=== PATIENT | female | born 1980 | race Caucasian/White ===

== ENCOUNTER 2018-07-22 15:21 | Inpatient (IN) | payer OTHER ==
[2018-07-22 23:08] VITALS: BMI 19.5
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
[2018-07-23] MEDS ORDERED: hydrOXYzine PAMOATE 25 MG CAPSULE (FP) PO PRN (00:20)
[2018-07-23] MEDS ORDERED: MAGNESIUM HYDROX 2400MG/30ML ORAL SUSPENSION 30 ML CUP PO PRN (00:20)
[2018-07-23] MEDS ORDERED: METHOCARBAMOL 500 MG TABLET PO PRN (00:20)
[2018-07-23] MEDS ORDERED: cloNIDine HCL 0.1 MG TABLET PO PRN (00:20)
[2018-07-23] MEDS ORDERED: P-EPHED 60MG/TRIPROLIDI 2.5MG TABLET PO PRN (00:20)
[2018-07-23] MEDS ORDERED: NALOXONE HCL 0.4 MG/ML VIAL IVPUSH PRN (00:20)
[2018-07-23] MEDS ORDERED: IBUPROFEN 400 MG TABLET (FP) PO PRN ×2 (00:20)
[2018-07-23] MEDS ORDERED: DICYCLOMINE HCL 10 MG CAPSULE PO PRN (00:20)
[2018-07-23] MEDS ORDERED: guaiFENesin 200 MG/10 ML 10 ML UNIT-DOSE CUPS PO PRN (00:20)
[2018-07-23] MEDS ORDERED: MAG HYDROX/AL HYDROX/SIMETH 30 ML UNIT-DOSE CUP PO PRN (00:20)
[2018-07-23] MEDS ORDERED: METHADONE HCL 10 MG TABLET (FOR DETOX USE ONLY) PO ONE ×2 (00:20→10:00)
[2018-07-23] MEDS ORDERED: MAGNESIUM CITRATE 300 ML BOTTLE PO PRN (00:20)
[2018-07-23] MEDS ORDERED: MENTHOL/PHENOL 1 EACH UD MM PRN (00:20)
[2018-07-23] MEDS ORDERED: BISMUTH SUBSALICYLATE 524 MG/30 ML UD PO PRN (00:20)
[2018-07-23] MEDS ORDERED: ONDANSETRON *ODT* 4 MG TABLET SL PRN (00:20)
[2018-07-23] MEDS ORDERED: ACETAMINOPHEN 325 MG TABLET (FP) PO PRN ×2 (00:20)
[2018-07-23] MEDS: diazePAM 5 MG TABLET PO PRN (03:31)
[2018-07-23] MEDS: diazePAM 5 MG TABLET PO SCH ×3 (06:34→22:52)
[2018-07-23] MEDS: metroNIDAZOLE 250 MG TABLET PO SCH ×2 (10:32→22:51)
[2018-07-23] MEDS: CLINDAMYCIN PHOSPHATE 1% TOPICAL SOLUTION 30 ML BOTTLE TP SCH ×2 (10:32→22:53)
[2018-07-23] MEDS: PRENATAL VITAMINS W/ FOLIC ACID TABLET (FP) PO SCH (10:32)
[2018-07-23] MEDS: NICOTINE 14 MG/24 HOURS TOPICAL PATCH TD SCH (10:56)
--- NOTE | 2018-07-23 11:38 | PN ---
S CIWA - CIWA Score Nausea/Vomitin-No Nausea/No Vomiting Muscle Tremors: 3 Anxiety: 3 Agitation: 2 Paroxysmal Sweats: No Perspiration Orientation: 0-Oriented Tacttile Disturbances: 2-Mild Itch/Numbness/Burn Auditory Disturbances: 0-None Visual Disturbances: 0-None Headache: 2-Mild CIWA-Ar Total Score: 12 [facility] COWS - Scale Resting Pulse: 2= TN 101-120 Sweatin= No chills or Flushing Restless Observation: 3= Extraneous Movement Pupil Size: 0= Normal to Room Light Bone or Joint Aches: 2= Severe Diffuse Aches Runny Nose/ Eye Tearin= None GI Upset > 30mins: 0= None Tremor Observation of Outstretched Hands: 2= Slight Tremor Visible Yawning Observation: 1= 1-2x During Session Anxiety or Irritability: 2=Irritable/Anxious Goose Flesh Skin: 0=Smooth Skin COWS Score: 12 [facility] Progress Note (SOAP) Subjective: c/o Dry skin, anxiety, body aches, tremor, headache, and irritability. Objective: 07/23/18 11:34 Vital Signs 07/23/18 07/23/18 06:00 09:40 Temperature 96.8 F L 98.0 F Pulse Rate 77 112 H Respiratory 20 18 Rate Blood Pressure 110/55 L 135/76 Labs pending. Assessment: 07/23/18 11:35 AOX3, in no acute distress full rom, ambulating in the unit. withdrawal symptoms Plan: continue detox increase fluids Eucerin lotion for dry skin
[2018-07-23] MEDS: MINERAL OIL/PETROLAT/WATER TOPICAL CREAM 113 GM JAR TP SCH ×2 (14:40→22:52)
[2018-07-23] MEDS: NICOTINE POLACRILEX 2 MG GUM BUC PRN (18:43)
[2018-07-23] MEDS: MELATONIN 5 MG TABLETS PO PRN (22:51)
[2018-07-23] MEDS: THIAMINE HCL 100 MG TABLET (FP) PO SCH (22:51)
[2018-07-24] MEDS: diazePAM 5 MG TABLET PO SCH ×2 (05:37→17:50)
[2018-07-24] MEDS ORDERED: METHADONE HCL 10 MG TABLET (FOR DETOX USE ONLY) PO ONE (10:00)
[2018-07-24 10:34] LABS: ALBUMIN 3.2 g/dl (3.4-5.0); BILIRUBIN,TOTAL 0.3 mg/dL (0.2-1); CALCIUM 8.4 mg/dL (8.5-10.1); CREATININE 0.5 mg/dL (0.55-1.3); POTASSIUM 3.9 mmol/L (3.5-5.1)
[2018-07-24] MEDS: MINERAL OIL/PETROLAT/WATER TOPICAL CREAM 113 GM JAR TP SCH ×2 (10:34→22:48)
[2018-07-24] MEDS: metroNIDAZOLE 250 MG TABLET PO SCH ×2 (10:34→22:44)
[2018-07-24] MEDS: CLINDAMYCIN PHOSPHATE 1% TOPICAL SOLUTION 30 ML BOTTLE TP SCH ×2 (10:34→22:48)
[2018-07-24] MEDS: PRENATAL VITAMINS W/ FOLIC ACID TABLET (FP) PO SCH (10:34)
[2018-07-24] MEDS: NICOTINE 14 MG/24 HOURS TOPICAL PATCH TD SCH (10:35)
[2018-07-24 10:44] LABS: HEMATOCRIT 31.8 % (32.4-45.2); HEMOGLOBIN 10.6 GM/dL (10.7-15.3); MCH 30.7 pg (25.7-33.7); MCHC 33.4 g/dl (32.0-36.0); MEAN CELL VOLUME 92.1 fl (80-96); MEAN PLT VOLUME 9.7 fl (7.5-11.1); PLATELET COUNT 140 K/MM3 (134-434); RBC 3.46 M/mm3 (3.60-5.2); RDW 14.6 % (11.6-15.6)
[2018-07-24 10:48] LABS: WHITE BLOOD COUNT 1.9 K/mm3 (4.0-10.0)
--- NOTE | 2018-07-24 18:04 | PN ---
[facility] CIWA - CIWA Score Nausea/Vomitin-Mild Nausea/No Vomiting Muscle Tremors: 4-Moderate,w/Arms Extend Anxiety: 3 Agitation: 3 Paroxysmal Sweats: 3 Orientation: 0-Oriented Tacttile Disturbances: 0-None Auditory Disturbances: 0-None Visual Disturbances: 0-None Headache: 0-None Present CIWA-Ar Total Score: 14 S COWS - Scale Resting Pulse: 0= MT 80 or Below Sweatin= Chills/Flushing Restless Observation: 3= Extraneous Movement Pupil Size: 0= Normal to Room Light Bone or Joint Aches: 2= Severe Diffuse Aches Runny Nose/ Eye Tearin= Runny Nose/Eyes GI Upset > 30mins: 2= Nausea/Diarrhea Tremor Observation of Outstretched Hands: 2= Slight Tremor Visible Yawning Observation: 0= None Anxiety or Irritability: 2=Irritable/Anxious Goose Flesh Skin: 0=Smooth Skin COWS Score: 14 [facility] Progress Note (SOAP) Subjective: Lots of Sweating, chills Objective: 07/24/18 18:01 Last Vital Signs Temp Pulse Resp BP Pulse Ox 98.8 F 61 16 103/67 07/24/18 14:29 07/24/18 14:29 07/24/18 14:29 07/24/18 14:29 Laboratory Tests 07/24/18 07/24/18 07/24/18 07:50 07:50 07:50 WBC 1.9 L* RBC 3.46 L Hgb 10.6 L Hct 31.8 L MCV 92.1 MCH 30.7 MCHC 33.4 RDW 14.6 Plt Count 140 D MPV 9.7 Sodium 136 Potassium 3.9 Chloride 100 Carbon Dioxide 32 Anion Gap 3 L BUN 15 Creatinine 0.5 L Est GFR (CKD-EPI)AfAm 143.30 Est GFR (CKD-EPI)NonAf 123.64 Random Glucose 76 Calcium 8.4 L Total Bilirubin 0.3 AST 18 ALT 21 Alkaline Phosphatase 56 Total Protein 7.0 Albumin 3.2 L RPR Titer Nonreactive Labs reviewed: pancytopenia noted Assessment: 07/24/18 18:02 Withdrawal symptoms Pancytopenia noted Plan: Continue detox Encouraged PO water intake Pancytopenia: most likely r/t HIV, repeat CBC in AM, Send CD4 count in AM, encouraged hand washing with soap and water before eating and after using bathroom due to neutropenia
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
[2018-07-24] MEDS: diazePAM 5 MG TABLET PO PRN (22:46)
[2018-07-24] MEDS: THIAMINE HCL 100 MG TABLET (FP) PO SCH (22:46)
[2018-07-25] MEDS ORDERED: diazePAM 5 MG TABLET PO ONE (06:00)
[2018-07-25] MEDS ORDERED: METHADONE HCL 10 MG TABLET (FOR DETOX USE ONLY) PO ONE (10:00)
[2018-07-25 10:10] LABS: BASO % 0.7 % (0-2.0); EOS % 3.9 % (0-4.5); HEMATOCRIT 31.6 % (32.4-45.2); HEMOGLOBIN 10.6 GM/dL (10.7-15.3); LYMPH % 19.9 % (8-40); MCH 30.6 pg (25.7-33.7); MCHC 33.4 g/dl (32.0-36.0); MEAN CELL VOLUME 91.6 fl (80-96); MEAN PLT VOLUME 9.7 fl (7.5-11.1); NEUT % 59.5 % (42.8-82.8); PLATELET COUNT 135 K/MM3 (134-434); RBC 3.44 M/mm3 (3.60-5.2); RDW 14.4 % (11.6-15.6); WHITE BLOOD COUNT 2.4 K/mm3 (4.0-10.0)
[2018-07-25] MEDS: PRENATAL VITAMINS W/ FOLIC ACID TABLET (FP) PO SCH (11:06)
[2018-07-25] MEDS: metroNIDAZOLE 250 MG TABLET PO SCH ×2 (11:06→22:12)
[2018-07-25] MEDS: MINERAL OIL/PETROLAT/WATER TOPICAL CREAM 113 GM JAR TP SCH ×2 (11:06→22:11)
[2018-07-25] MEDS: CLINDAMYCIN PHOSPHATE 1% TOPICAL SOLUTION 30 ML BOTTLE TP SCH ×2 (11:06→22:11)
[2018-07-25] MEDS ORDERED: METHADONE HCL 5 MG TABLET (FOR DETOX USE ONLY) PO ONE (11:30)
--- NOTE | 2018-07-25 11:41 | PN ---
[facility] Progress Note (SOAP) Subjective: tired sweats little anxiety Objective: 07/25/18 11:41 Vital Signs Temperature 97.9 F 07/25/18 11:04 Pulse Rate 64 07/25/18 11:04 Respiratory Rate 18 07/25/18 11:04 Blood Pressure 126/78 07/25/18 11:04 O2 Sat by Pulse Oximetry (%) aaox3 ambulating no acute distress Assessment: 07/25/18 11:41 mild withdrawal sx Plan: continue detox increase fluids
[2018-07-25] MEDS: NICOTINE 14 MG/24 HOURS TOPICAL PATCH TD SCH (13:34)
[2018-07-25] MEDS: THIAMINE HCL 100 MG TABLET (FP) PO SCH (22:12)
[2018-07-25] MEDS: NICOTINE POLACRILEX 2 MG GUM BUC PRN (22:12)
[2018-07-25] MEDS: diazePAM 5 MG TABLET PO PRN (22:13)
[2018-07-25] MEDS: MELATONIN 5 MG TABLETS PO PRN (22:15)
[2018-07-26] MEDS ORDERED: METHADONE HCL 10 MG TABLET (FOR DETOX USE ONLY) PO ONE (10:00)
[2018-07-26] MEDS: CLINDAMYCIN PHOSPHATE 1% TOPICAL SOLUTION 30 ML BOTTLE TP SCH ×2 (10:41→22:43)
[2018-07-26] MEDS: MINERAL OIL/PETROLAT/WATER TOPICAL CREAM 113 GM JAR TP SCH ×2 (10:41→22:43)
[2018-07-26] MEDS: metroNIDAZOLE 250 MG TABLET PO SCH ×2 (10:41→22:24)
[2018-07-26] MEDS: NICOTINE 14 MG/24 HOURS TOPICAL PATCH TD SCH (10:43)
[2018-07-26] MEDS: PRENATAL VITAMINS W/ FOLIC ACID TABLET (FP) PO SCH (10:43)
[2018-07-26] MEDS: NICOTINE POLACRILEX 2 MG GUM BUC PRN ×2 (10:43→20:50)
--- NOTE | 2018-07-26 11:06 | PN ---
[facility] Progress Note (SOAP) Subjective: agitation sweats interrupted sleep Objective: 07/26/18 11:06 Vital Signs Temperature 99.0 F 07/26/18 09:32 Pulse Rate 72 07/26/18 09:32 Respiratory Rate 16 07/26/18 09:32 Blood Pressure 125/75 07/26/18 09:32 O2 Sat by Pulse Oximetry (%) aaox3 ambulating no acute distress Assessment: 07/26/18 11:06 mild withdrawal sx Plan: continue detox increase fluids d/c in am
[2018-07-26] MEDS: THIAMINE HCL 100 MG TABLET (FP) PO SCH (22:24)
[2018-07-27] MEDS ORDERED: METHADONE HCL 5 MG TABLET (FOR DETOX USE ONLY) PO ONE (06:00)
--- NOTE | 2018-07-27 09:20 | DS ---
[facility] Detox Discharge Summary Admission Date: 07/23/18 Discharge Date: 07/27/18 - History Present History: Alcohol Dependence, Cannabis Dependence, Cocaine Dependence - Physical Exam Results Vital Signs: Vital Signs Temperature 98.4 F 07/27/18 08:04 Pulse Rate 67 07/27/18 08:04 Respiratory Rate 16 07/27/18 08:04 Blood Pressure 107/59 L 07/27/18 08:04 O2 Sat by Pulse Oximetry (%) - Treatment Hospital Course: Detox Protocol Followed, Detoxed Safely, Responded well, Discharged Condition Good, Rehab Referral Accepted - Medication Discharge Medications: Ambulatory Orders Benztropine Mesylate [Cogentin -] 1 mg PO DAILY 05/18/14 Chlorpromazine [Thorazine -] 50 mg PO BID 05/18/14 Divalproex Sodium [Divalproex Sodium ER] 500 mg PO HS 05/18/14 Divalproex [Depakote -] 250 mg PO DAILY 05/18/14 Mirtazapine [Remeron -] 30 mg PO HS 05/18/14 Haloperidol [Haldol -] 10 mg PO BID 02/08/15 metroNIDAZOLE [Flagyl -] 500 mg PO BID 07/27/18 - Diagnosis (1) Alcohol dependence with uncomplicated withdrawal Current Visit: Yes Status: Chronic (2) BV (bacterial vaginosis) Current Visit: Yes Status: Chronic (3) Cannabis abuse, uncomplicated Current Visit: Yes Status: Chronic (4) Cannabis dependence Current Visit: Yes Status: Chronic (5) Cocaine abuse, uncomplicated Current Visit: Yes Status: Chronic (6) Opioid dependence with withdrawal Current Visit: Yes Status: Acute (7) ADD (attention deficit disorder) Current Visit: Yes Status: Chronic Qualifiers: Hyperactivity presence: present (8) HIV (human immunodeficiency virus infection) Current Visit: Yes Status: Chronic Qualifiers: HIV symptom status: unspecified Qualified Code(s): B20 - Human immunodeficiency virus [HIV] disease (9) Substance induced mood disorder Current Visit: Yes Status: Suspected (10) Bipolar 1 disorder, depressed Current Visit: No Status: Acute (11) Seizures Current Visit: Yes Status: Acute (12) Anxiety disorder Current Visit: No Status: Chronic Qualifiers: Anxiety disorder type: unspecified anxiety disorder Qualified Code(s): F41.9 - Anxiety disorder, unspecified (13) Bipolar 1 disorder Current Visit: No Status: Chronic (14) Bipolar 1 disorder, mixed, severe Current Visit: No Status: Chronic (15) Cocaine dependence Current Visit: No Status: Chronic (16) Mood disorder Current Visit: No Status: Chronic (17) Opiate dependence Current Visit: Yes Status: Chronic Qualifiers: Substance use status: uncomplicated Qualified Code(s): F11.20 - Opioid dependence, uncomplicated (18) Schizoaffective disorder Current Visit: No Status: Chronic (19) Seizure disorder Current Visit: No Status: Chronic - AMA Did Patient Leave Against Medical Advice: No (referred to rehab)
[2018-07-27] MEDS: metroNIDAZOLE 250 MG TABLET PO SCH (10:34)
[2018-07-27] MEDS: PRENATAL VITAMINS W/ FOLIC ACID TABLET (FP) PO SCH (10:34)
[2018-07-27] MEDS: NICOTINE POLACRILEX 2 MG GUM BUC PRN (10:35)
[2018-07-27] MEDS: NICOTINE 14 MG/24 HOURS TOPICAL PATCH TD SCH (10:35)
[2018-07-27] MEDS: MINERAL OIL/PETROLAT/WATER TOPICAL CREAM 113 GM JAR TP SCH (10:35)
[2018-07-27] MEDS: CLINDAMYCIN PHOSPHATE 1% TOPICAL SOLUTION 30 ML BOTTLE TP SCH (10:35)
--- NOTE | 2018-07-27 11:01 | CONSULT ---
[facility] Psychiatric Consult - Data Date of interview: 07/27/18 Admission source: [facility] Identifying data: Readmision to [facility] for this 38 y/o female self- referred for detoxification (heroin, cocaine, canabis,alcohol). Examined today on . Patient is single, a mother of two, domiciled, uemployed and supported on [employer] funds. Substance Abuse History: Confirmed by the patient in this session. Details in current [facility] report as follows : Smoking history: Current every day smoker. Have you smoked in the past 12 months: Yes. Aproximately how many cigarettes per day: 10. Cigars Per Day: 0. Hx Chewing Tobacco Use: No. Initiated information on smoking cessation: Yes. 'Breaking Loose' booklet given: . - Substance & Tx. History. Hx Alcohol Use: Yes. Hx Substance Use: Yes. Substance Use Type: Alcohol, Cocaine, Heroin, Marijuana. Hx Substance Use Treatment: Yes ([facility] - Substances abused. Heroin. Substance route: Inhalation. Frequency: Daily. Amount used: 6 bags. Age of first use: 16. Date of last use: 07/22/18. Crack. Substance route: Smoking. Frequency: Daily. Amount used: $50 per day. Age of first use: 30. Date of last use: . Alcohol. Substance route: Oral. Frequency: 3-6 times per week. Amount used: 6 NIPS. Age of first use: 16. Date of last use: 07/22/18. Marijuana/Hashish. Substance route: Smoking. Frequency: Daily. Amount used: 2 joints. Age of first use: 17. 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 Psychiatric History: Onset of emotional disturbances in adolescence. Diagnosed with ADHD and treated in the past with psychostimulants. Patient presents with a history of chronic non-adherence to medications + OPD care. Ms Jean used to be prescribed lexapro + seroquel + depakote + thorazine + remeron throughout the years. At age 22, the patient got diagnosed with Generalized Anxiety Disorder. and Bipolar Disorder. History of multiple psychiatric hospitalizations ([place]). She is known to Jae Mckeon. In this interview, the patient declares that she has NOT taken psychotropic medications for several months. No contact with psychiatric care providers. Declines to consider getting back to OPD care. Patient denies history of suicide attempts. Physical/Sexual Abuse/Trauma History: Not discussed. Patient declines. Additional Comment: Urine drug screen results: THC-Marijuana, SUJATHA-Cocaine, FEN- Fentanyl, MOP-Opiates, BUP-Suboxone. Noted. Mental Status Exam - Mental Status Exam Alert and Oriented to: Time, Place, Person Cognitive Function: Good Patient Appearance: Well Groomed (cachectic, small stature) Mood: Hopeful Affect: Appropriate, Normal Range Patient Behavior: Appropriate, Cooperative Speech Pattern: Clear Voice Loudness: Normal Thought Process: Goal Oriented Thought Disorder: Not Present Hallucinations: Denies Suicidal Ideation: Denies Homicidal Ideation: Denies Insight/Judgement: Poor Sleep: Well Appetite: Poor, Weight loss Gait/Station: Normal Psychiatric Findings - Problem List ([place] 1, 2,3) (1) Alcohol dependence Status: Chronic (2) Cannabis dependence Status: Chronic (3) Opioid dependence Status: Acute (4) Cocaine dependence Status: Acute (5) History of schizoaffective disorder Status: Chronic (6) Non-compliance Status: Chronic - Initial Treatment Plan Initial Treatment Plan: Ms Jean is for referral to [facility] for rehabilitative care (according to plan). Patient has declined to resume mood stabilizers.
[2018-07-27 11:09] VITALS: BP 110/68; PULSE 68; TEMP 98.1
== END 2018-07-27 12:15 | disposition home or self-care (01) | DRG 773 ==
LOC: YASAS 15:21 → Y6N 07-23 01:53
PROVIDERS: ADMIT Surgery; ATTEND Surgery
PROC: HZ2ZZZZ Detoxification Services for Substance Abuse Treatment (ICD-10-PCS; principal; 2018-07-23)
DX: F11.23 Opioid dependence with withdrawal (principal); F10.230 Alcohol dependence with withdrawal, uncomplicated; F14.20 Cocaine dependence, uncomplicated; F12.20 Cannabis dependence, uncomplicated; F17.210 Nicotine dependence, cigarettes, uncomplicated; F25.9 Schizoaffective disorder, unspecified; F90.9 Attention-deficit hyperactivity disorder, unspecified type; F19.24 Other psychoactive substance dependence with psychoactive substance-induced mood disorder; F31.89 Other bipolar disorder; F41.9 Anxiety disorder, unspecified; F39 Unspecified mood [affective] disorder; Z21 Asymptomatic human immunodeficiency virus [HIV] infection status; N76.0 Acute vaginitis; L73.9 Follicular disorder, unspecified; Z86.69 Personal history of other diseases of the nervous system and sense organs; Z91.19 Patient's noncompliance with other medical treatment and regimen; Z88.8 Allergy status to other drugs, medicaments and biological substances
CPT/HCPCS: 36415; 80053; 85025; 85027; 86593